=== PATIENT | female | born 1950 | race Asian ===

== ENCOUNTER 2021-05-11 10:08 | Emergency (ER) | payer MEDICARE ==
[~2021-05-11] VITALS: Ht 157.5 cm; Wt 59.1 kg
[2021-05-11 10:35] VITALS: BP 186/104
[2021-05-11] MEDS ORDERED: DiphenhydrAMINE HCL 50 MG/ML VIAL IM ONE (11:15)
[2021-05-11] MEDS ORDERED: PredniSONE 20 MG TABLET PO ONE (11:15)
== END 2021-05-11 12:12 | disposition home or self-care (01) ==
LOC: EMS 10:11
DX: L30.9 Dermatitis, unspecified (principal); E11.9 Type 2 diabetes mellitus without complications; I10 Essential (primary) hypertension; Z90.89 Acquired absence of other organs; Z88.5 Allergy status to narcotic agent
CPT/HCPCS: 96372; 99283; J1200; J7512